=== PATIENT | male | born 1955 | race Caucasian/White ===

== ENCOUNTER 2022-12-18 11:42 | Outpatient (REF) | payer MEDICARE, SELFPAY ==
[2022-12-18 19:31] LABS: ALT 17 U/L (16-63); AST 20 U/L (15-37); Albumin 4.3 g/dL (3.4-5.0); Alkaline Phosphatase 72 U/L (46-116); Anion Gap 6.3 mmol/L (3-11); BUN 18 mg/dL (7-18); Bilirubin, Total 0.5 mg/dL (0.2-1.0); CO2 30.7 mmol/L (21.0-32.0); CREATININE 1.3 mg/dL (0.70-1.30); Calcium 9.8 mg/dL (8.5-10.1); Chloride 104 mmol/L (98-107); Estimated GFR 59.47 (mL/min/1.73m2); Glucose 103 mg/dL (74-106); Potassium 4.3 mmol/L (3.5-5.1); Sodium 141 mmol/L (136-145)
== END 2022-12-18 11:43 | disposition home or self-care (01) ==
LOC: NCHCN 11:42
PROVIDERS: Visit Provider Nurse Practitioner Family
DX: I25.10 Atherosclerotic heart disease of native coronary artery without angina pectoris (principal)
CPT/HCPCS: 80053

== ENCOUNTER 2024-05-09 13:15 | Outpatient (REF) | payer MEDICARE, SELFPAY ==
[2024-05-09 20:25] LABS: TSH (W/Ref FT4) 13.73 uIU/mL (0.36-3.74)
[2024-05-09 20:42] LABS: FREE T4 0.67 ng/dL (0.76-1.46)
== END 2024-05-09 13:16 | disposition home or self-care (01) ==
LOC: NCHCN 13:15
PROVIDERS: PCP Nurse Practitioner Family; Visit Provider Nurse Practitioner Family
DX: R00.2 Palpitations (principal)
CPT/HCPCS: 84439; 84443

== ENCOUNTER 2024-05-23 08:51 | Outpatient (REF) | payer MEDICARE, SELFPAY ==
[2024-05-23 20:15] LABS: FREE T4 0.72 ng/dL (0.76-1.46)
== END 2024-05-23 08:52 | disposition home or self-care (01) ==
LOC: NCHCN 08:51
PROVIDERS: PCP Nurse Practitioner Family; Visit Provider Nurse Practitioner Family
DX: E03.9 Hypothyroidism, unspecified (principal)
CPT/HCPCS: 84439; 84443

== ENCOUNTER 2024-07-11 13:36 | Outpatient (REF) | payer MEDICARE, SELFPAY ==
[2024-07-11 20:33] LABS: TSH (W/Ref FT4) 6.72 uIU/mL (0.36-3.74)
[2024-07-11 20:51] LABS: FREE T4 0.76 ng/dL (0.76-1.46)
== END 2024-07-11 13:37 | disposition home or self-care (01) ==
LOC: NCHCN 13:36
PROVIDERS: PCP Nurse Practitioner Family; Visit Provider Nurse Practitioner Family
DX: E03.9 Hypothyroidism, unspecified (principal)
CPT/HCPCS: 84439; 84443